=== PATIENT | female | born 1955 | race Caucasian/White ===

== ENCOUNTER 2019-05-22 23:43 | Emergency (ER) | payer OTHER, SELFPAY ==
[2019-05-22 23:50] VITALS: BP 104/61; PULSE 81; RESP 20; TEMP 36.7; O2SAT 99; BMI 30.7
--- NOTE | 2019-05-23 00:18 | ED_ITS ---
HPI - Fall General Chief Complaint: Fall Stated Complaint: GLF Time Seen by Provider: 05/23/19 00:30 Source: patient and EMS Mode of arrival: EMS History of Present Illness HPI Narrative: 64-year-old woman who reports no significant past medical history was with her this evening at the [facility] in notes that she was drinking more this evening than her usual 2-3 drinks a night. Once back in the hotel room she got up to void and fell in the bathroom landing on her right arm. Was unable to get off the floor and presents by medics complaining of significant right arm pain, headache and neck pain. Related Data Allergies Allergy/AdvReac Type Severity Reaction Status Date / Time No Known Drug Allergies Allergy Verified 05/23/19 01:07 Review of Systems Review of Systems Narrative: Denies ? fever ? cough ? cold ? chills ? wheezing ? abdominal pain ? change to bowel or bladder habits ? nausea vomiting ? skin changes ? rashes When questioned further about her drinking she states that she has tried to cut back, she has had people tell her that she drinks too much and she further states she isn't interested in discussing this Patient History Social History Smoking Status: Current every day smoker Smoking Status: Current every day smoker tobacco type: e-cigarettes alcohol intake frequency: a few times a month Substance Use Type: does not use Exam Narrative Exam Narrative: General: Well-nourished well-developed, smelling of alcohol with disinhibition consistent with intoxication HEENT: Moist mucous membranes, normal sclera with reactive pupils, 4 x 5 cm hematoma to the right frontal portion of her forehead, no skull tenderness with manipulation Neck: No JVD, C-collar is in place complains of tenderness along the right side of her neck without point cervical tenderness Respiratory: Lungs are clear to auscultation, no wheezing no rales no rhonchi. Full and symmetrical air movement Cardiac: Regular rate and rhythm no murmurs no bruits Abdomen: Soft nontender good bowel tones, no flank pain Skin: Warm and dry, no rashes Neurologic: Grossly neurologically intact with no obvious asymmetries or abnormalities Extremities: well perfused, neurovascularly intact. Right mid forearm full, tender without significant contusion or abrasion appreciated unable to move her arm at the shoulder joint on the right side elbow is on hindered and has full range of motion without pain Psych: Cooperative, appropriate insight and affect Initial Vital Signs Initial Vital Signs: Vital Signs Temperature 98.1 F 05/22/19 23:50 Pulse Rate 81 05/22/19 23:50 Respiratory Rate 20 05/22/19 23:50 Blood Pressure 104/61 05/22/19 23:50 Pulse Oximetry 99 05/22/19 23:50 Course Orders Ordered: ED Orders 05/23/19 00:26 XR humerus RT 2V Stat 05/23/19 00:27 CT cervical spine wo con Stat CT head/brain wo con Stat Discontinued Medications Hydrocodone Bitart/Acetaminophen ([place] 10/325) 1 tab PO NOW ONE Stop: 05/23/19 00:27 Last Admin: 05/23/19 02:29 Dose: Not Given Documented by: HGUBERN Hydrocodone Bitart/Acetaminophen ([place] 5/325) 1 tab PO NOW ONE Stop: 05/23/19 00:43 Last Admin: 05/23/19 01:10 Dose: 1 tab Documented by: [email or web address] Oxycodone/Acetaminophen (Endocet 5/325 Prepack) 1 bottle MISC SEEINSTR ONE Stop: 05/23/19 02:13 Last Admin: 05/23/19 02:40 Dose: 1 bottle Documented by: [email or web address] Vital Signs Vital signs: Vital Signs - 8 hr 05/22/19 23:50 05/23/19 01:05 05/23/19 01:25 Temperature 98.1 F 98.1 F Pulse Rate 81 81 70 Respiratory Rate 20 20 16 Blood Pressure 104/61 102/63 Blood Pressure [Left Arm] 122/70 Pulse Oximetry 99 05/23/19 02:25 05/23/19 02:48 Temperature Pulse Rate 72 82 Respiratory Rate 20 20 Blood Pressure Blood Pressure [Left Arm] 127/81 144/93 H Pulse Oximetry 97 97 MDM - Fall Medical Records Attestation: I reviewed the patient's medical records. Imaging Data Humerus x-ray: Attestation: I personally reviewed and interpreted this imaging study as follows: My Impression: Right-side humeral fracture approximately there is a spiral fracture and then mid shaft and oblique widely displaced and angulated fracture. It does not appear that the fracture line extends into the joint. CT scan - head: Radiologist's Impression: Chronic involutional volume loss with no signs of acute trauma. Cullen ocasio MD CT cervical spine: Radiologist's Impression: Mild compression fractures of T1 and T2 age undetermined without old films. MRI will also determine the probability that these may represent acute fractures of indicated. Cullen ocasio MD MDM Narrative Medical decision making narrative: Patient and her are visiting from [place], she was going to help her mother over the next couple of weeks. They were staying at the [employer] hotel and this evening after getting up to void she fell in the bathroom and was unable to get up off the floor. She hit her head is complaining of neck pain and right arm pain. Has a large hematoma to the right frontal area of her head tenderness along the right side of her neck into the trapezius and quite a bit of tenderness mid arm with enough swelling and tenderness that fracture is suspected CT scan of the head and cervical spine are unremarkable. X-rays show a spiral fracture in the proximal humerus and a widely comminuted transverse fracture with significant angulation midshaft. Case was reviewed with Dr. Gregory, orthopedist on-call. Films and concerns were described in detail. He suggested a sling and outpatient follow-up. After discussion, patient and her have decided they are going to drive back to [place] this evening and seek care with an orthopedist within the [facility] system tomorrow. Discharge Plan Departure Patient Disposition: Home Clinical Impression: Humeral shaft fracture, Contusion of forehead, Acute strain of neck muscle, Fall, Alcohol intoxication Discharge Date/Time: 05/23/19 02:48 Instructions: DI for Humeral Fracture Activity Restrictions/Additional Instructions: Thank you for coming in this evening You have a nasty broken arm. I am concerned that it will need surgery. After speaking with our orthopedist on-call this evening, he felt that it was safe for you to be discharged home with the sling and close orthopedic follow-up. Your CT scan also suggests that you have mild compression fractures at both T1 and T2 it is unclear if these are acute or chronic. You will need to have these further evaluated but I would expect the pain in your arm shoulder and upper thorax to be worse tomorrow. I appreciate fact that you want to return home to [place]. When you call to schedule an appointment please let them know that you had a fall, were seen in the emergency room, have angulated widely displaced mid shaft humeral fracture as well as a proximal humeral spiral fracture You can use 1-2 Percocet as needed for pain control. I would recommend taking 2 ibuprofen with the Percocet. Ice can be helpful I would also expect quite a bit of swelling, bruising and pain. Please keep the sling in place and try to move the arm as little as possible until your able to schedule an appointment with the orthopedic surgery office. I strongly recommend that you do not mix alcohol and narcotics, this can be a lethal combination I hope you heal well
--- NOTE | 2019-05-23 00:26 | DI.RAD.S_ITS ---
PROCEDURE: XR HUMERUS RT 2V INDICATIONS: fall TECHNIQUE: 2 views of the humerus were acquired. COMPARISON: None. FINDINGS: Bones: There is a displaced and angulated mid humeral shaft fracture. There is 4 cm overlap of the proximal and distal fragments. In addition, a nondisplaced lucency is also noted traversing the proximal humeral shaft. Soft tissues: No suspicious soft tissue calcifications. IMPRESSION: Displaced and angulated humeral shaft fracture. Dictated by: Gisella Gonzáles M.D. on 05/23/2019 at 9:12 Approved by: Gisella Gonzáles M.D. on 05/23/2019 at 9:14
--- NOTE | 2019-05-23 00:27 | DI.CT.S_ITS ---
PROCEDURE: CT HEAD/BRAIN WO CON INDICATIONS: trauma TECHNIQUE: Noncontrast 4.5 mm thick angled axial sections acquired from the foramen magnum to the vertex, with coronal and sagittal reformats. For radiation dose reduction, the following was used: automated exposure control, adjustment of mA and/or kV according to patient size. COMPARISON: None. FINDINGS: Image quality: Excellent. CSF spaces: Basal cisterns are patent. No extra-axial fluid collections. The ventricles are symmetric in size and shape. Brain: No intracranial bleeds or masses. There is cerebral volume loss for age, with resultant ventricular and sulcal prominence. There are periventricular and deep white matter chronic small vessel ischemic changes. There is intracranial internal carotid artery atherosclerosis. Skull and face: Calvarium and visualized facial bones appear intact, without suspicious lesions. Left facial subcentimeter skin nodule image 11/11. Recommend direct visual inspection. Left frontal scalp contusion Left maxillary sinus disease with mucous retention cyst. Additional smaller mucous retention cyst present in the right maxillary antrum.. Presumed debris in the left EAC. IMPRESSION: No acute intracranial process. Left frontal scalp contusion Possible debris seen in left external auditory canal/s which is technically nonspecific and recommend direct visual inspection to exclude soft tissue mass. Left facial skin nodule as above. Dictated by: Chito Severino M.D. on 05/23/2019 at 8:31 Approved by: Chito Severino M.D. on 05/23/2019 at 9:27
--- NOTE | 2019-05-23 00:27 | DI.CT.S_ITS ---
PROCEDURE: CT CERVICAL SPINE WO CON INDICATIONS: trauma TECHNIQUE: Noncontrast 3 mm thick sections acquired from the skull base to the T4 level. Sagittal and coronal reformats were then constructed. For radiation dose reduction, the following was used: automated exposure control, adjustment of mA and/or kV according to patient size. COMPARISON: None. FINDINGS: Image quality: Excellent. Bones: No cervical fractures or dislocations but there is mild anterior wedging of T1 and T2, potentially representing acute mild compression fractures in the clinical setting of trauma. Visualized superior ribs are intact. Soft tissues: Prevertebral soft tissues are normal in thickness. No paravertebral hematomas. No apical pneumothoraces. Note is made of a asymmetric enlargement of the lower left thyroid lobe measuring up to 2.4 x 3.5 cm. IMPRESSION: 1. Mild anterior T1 and T2 wedge deformities, chronicity uncertain. MR scanning could accurately establish acute versus chronic change. 2. There is an unexpected finding of asymmetric enlargement of the lower third of the left thyroid lobe, indistinctly marginated but measuring up to 2.4 x 3.5 cm and relatively poorly seen by this noncontrast study if the imaging margin. Thyroid ultrasound, elective, is recommended. Note: Findings related to the thyroid ultrasound recommendation were called to the emergency room at time of this dictation. Dictated by: Doug Fitzpatrick M.D. on 05/23/2019 at 8:25 Approved by: Doug Fitzpatrick M.D. on 05/23/2019 at 8:34
[2019-05-23 01:05] VITALS: BP 102/63; PULSE 81; RESP 20; TEMP 36.7; BMI 30.7
[2019-05-23] MEDS: HYDROCODONE/ACET 5/325 TABLET 1 TAB PO (01:10)
[2019-05-23 01:25] VITALS: BP 122/70; PULSE 70; RESP 16
--- NOTE | 2019-05-23 01:32 | PC.NURSE ---
Ice applied to right upper arm @ 0105.
[2019-05-23 02:25] VITALS: BP 127/81; PULSE 72; RESP 20; O2SAT 97
[2019-05-23] MEDS: OXYCODONE/APAP 5/325 PREPACK 1 BOTTLE MISC (02:40)
[2019-05-23 02:48] VITALS: BP 144/93; PULSE 82; RESP 20; O2SAT 97
== END 2019-05-23 02:48 | disposition home or self-care (01) ==
PROVIDERS: Emergency Provider Emergency Medicine
DX: S42.301A Unspecified fracture of shaft of humerus, right arm, initial encounter for closed fracture (principal); S00.83XA Contusion of other part of head, initial encounter; S16.1XXA Strain of muscle, fascia and tendon at neck level, initial encounter; F10.129 Alcohol abuse with intoxication, unspecified; W19.XXXA Unspecified fall, initial encounter
CPT/HCPCS: 70450; 72125; 73060; 99283; 99284